=== PATIENT | female | born 1965 | race Caucasian/White ===

== ENCOUNTER 2016-06-09 11:05 | Emergency (ER) | payer BC ==
[2016-06-09 11:58] VITALS: BP 121/78
[2016-06-09] MEDS ORDERED: NS 0.9% 1000 ML* 1,000 ML IV ONE (12:14)
--- NOTE | 2016-06-09 12:33 | ED ---
Syncope/Near Syncope - HPI Summary HPI Summary: Patient presents for delayed evaluation of "dizziness" since 2015, but worsened over the last 3 weeks. Dizziness is described as her head being upside down, but denies vertiginous symptoms. Came for evaluation. No positional or exertional component to incite each episode, although sometimes worsened by extending her head. Denies any specific subjective complaints, poor po intake, medication changes, recent illnesses. No allev factors attemted. Has never discussed this with her PCP or Neurologist since the onset. Came to the ED because it was more convenient than contacting her Neurologist. 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 Onset/Duration: Gradual Onset, Lasting Weeks Timing: Intermittent Episode Lasting Associated Head Trauma: Yes Aggravating Factor(s): Nothing Alleviating Factor(s): Nothing, Spontaneous Resolution Associated Signs And Symptoms: Head Trauma (Remote), Lightheadedness - Allergies/Home Medications Allergies/Adverse Reactions: Allergies Allergy/AdvReac Type Severity Reaction Status Date / Time Cortisone Allergy Hives Verified 03/12/16 09:36 Home Medications: Home Medications Penicillin VK TAB 500 MG(NF) [Penicillin VK 500 mg Tab(NF)] 500 mg PO BID [History Confirmed 06/09/16] Probiotic Product [Probiotic Daily] 2 cap PO DAILY 06/09/16 [History Confirmed 06/09/16] PMH/Surg Hx/FS Hx/Imm Hx Previously Healthy: Yes Endocrine/Hematology History: Denies: Hx Diabetes Cardiovascular History: Denies: Hx Hypertension, Hx Pacemaker/ICD History: Denies: Hx Renal Disease Musculoskeletal History: Reports: Hx Back Problems Sensory History: Reports: Hx Cataracts Denies: Hx Hearing Aid Opthamlomology History: Reports: Hx Cataracts Psychiatric History: Denies: Hx Panic Disorder - Surgical History Surgery Procedure, Year, and Place: C SECTION. TUBAL LIGATION. DEQUERVEIN -Rt WRIST. CSP - FUSION -12/05/14. BREAST REDUCTION /ABD PLASTY -07/2015. CATARACT AND LASER Infectious Disease History: No Infectious Disease History: Reports: History Other Infectious Disease - Herpes Denies: Traveled Outside the [place] in Last 30 Days - Social History Alcohol Use: Occasionally Substance Use Type: Reports: None Smoking Status (MU): Current Every Day Smoker Type: Cigarettes Amount Used/How Often: 1/2 PPD Have You Smoked in the Last Year: Yes Review of Systems Negative: Blurred Vision, Diplopia Cardiovascular: Negative Negative: Palpitations, Chest Pain Respiratory: Negative Musculoskeletal: Negative Skin: Negative Negative: Headache, Weakness, Paresthesia, Numbness, Syncope, Slurred Speech Positive: Anxious All Other Systems Reviewed And Are Negative: Yes Physical Exam Triage Information Reviewed: Yes Vital Signs On Initial Exam: Initial Vitals Temp Pulse Resp BP Pulse Ox 99.2 F 88 18 125/80 100 06/09/16 11:30 06/09/16 11:30 06/09/16 11:30 06/09/16 11:30 06/09/16 11:30 Vital Signs Reviewed: Yes Appearance: Positive: Well-Appearing, No Pain Distress, Well-Nourished Skin: Positive: Warm, Skin Color Reflects Adequate Perfusion, Dry Head/Face: Positive: Normal Head/Face Inspection. Negative: Temporal Artery Tenderness, Cephalohematoma Eyes: Positive: Normal, EOMI, MARLON, Conjunctiva Clear ENT: Positive: Normal ENT inspection, Hearing grossly normal, Pharynx normal, Other - Bilateral serous effusion in the ears. Neck: Positive: Supple, Nontender, No Lymphadenopathy, Other: - No carotid bruits or thrills. Respiratory/Lung Sounds: Positive: Clear to Auscultation, Breath Sounds Present Cardiovascular: Positive: Normal, RRR, Pulses are Symmetrical in both Upper and Lower Extremities Abdomen Description: Positive: Nontender, No Organomegaly, Soft Musculoskeletal: Positive: Normal, Strength/ROM Intact Neurological: Positive: Normal, Sensory/Motor Intact, Alert, Oriented to Person Place, Time, CN Intact II-III, Reflexes Intact, NV Bundle Intact Distally, Normal Gait, Heel to Toe, Finger to Nose, Facial Symmetry, Speech Normal. Negative: Babinski Bilateral, Cerebellar Dysfunction, Disoriented, EOM Palsy, Facial Droop, Focal Deficit @, Slurred Speech, Dysphagia, Rhomberg, Ataxic Gait , Dysarthric Aphasia, Pronator Drift Present Psychiatric: Positive: Anxious Diagnostics - Vital Signs Vital Signs Temp Pulse Resp BP Pulse Ox 06/09/16 11:34 92 17 97 06/09/16 11:33 121/78 06/09/16 11:30 99.2 F 88 18 125/80 100 - Laboratory Result Diagrams: 06/09/16 12:35 06/09/16 12:35 Lab Statement: Any lab studies that have been ordered have been reviewed, and results considered in the medical decision making process. - EKG No standard instances Cardiac Rate: NL EKG Rhythm: Sinus Rhythm ST Segment: Normal Ectopy: None - HR 91 Course/Dx - Diagnoses Differential Diagnosis/HQI/PQRI: Positive: Cerebral Vascular Accident, Coronary Artery Disease, Dysrhythmia, Pulmonary Embolism, Transient Ischemic Attack, Other - Uncertain if this is posterior cerebellar insufficiency, VTE. Odd presentation, but non focal neurologic exam. Provider Diagnoses: Near syncope - Physician Notifications Discussed Care Of Patient With: Dr. Tafoya ( Neurosurgery) recommends PCP FU. Discharge - Discharge Plan Condition: Stable Disposition: HOME Patient Education Materials: Near Syncope (ED) Referrals: Manfred Elmore MD [Primary Care Provider] -
[2016-06-09 12:49] LABS: Hematocrit 43 % (35-47); Hemoglobin 14.4 g/dl (12.0-16.0); Mean Corpuscular HGB Conc 34 g/dl (31-36); Mean Corpuscular Hemoglobin 34 pg (27-31); Mean Corpuscular Volume 101 fL (80-97); Mean Platelet Volume 8 um3 (7.4-10.4); Red Blood Count 4.21 10^6/ul (4.0-5.4); Red Cell Distribution Width 13 % (10.5-15); White Blood Count 6.7 10^3/ul (3.5-10.8)
[2016-06-09 12:53] LABS: Urine Bilirubin Negative (Negative); Urine Glucose Negative (Negative); Urine Nitrite Negative (Negative)
[2016-06-09 13:08] LABS: BUN/Creatinine Ratio 16.9 (8-20); Calcium 9.9 mg/dL (8.6-10.3); EGFR African American 111.6 (>60); EGFR Non-African American 86.8 (>60); Potassium 3.8 mmol/L (3.5-5.0)
[2016-06-09] MEDS ORDERED: Iohexol 350* (CONTRAST) 500 ML MDV IV ONE (13:17)
--- NOTE | 2016-06-09 13:58 | RAD ---
INDICATION: Dizziness. COMPARISON: CT angiogram head and neck of the same date. CT brain October 27, 2010. Technique: Noncontrast CT vertex of skull through foramen magnum. REPORT: The sulci, ventricles, and basal cisterns are normal for age. Lim matter white matter differentiation is preserved without evidence for edema. No intra or extra axial hemorrhage, mass, or fluid collection detected. Unremarkable orbital contents. Unremarkable calvarium and skull base. Unremarkable scalp. The visualized paranasal sinuses and mastoid air spaces are clear. IMPRESSION: Negative unenhanced head CT.
--- NOTE | 2016-06-09 14:08 | RAD ---
INDICATION: Dizziness. COMPARISON: Noncontrast head CT of the same date. TECHNIQUE: Multidetector CT images were obtained from the aortic arch to the vertex of the head with 80 mL Omnipaque 350 IV contrast. Arterial phase of enhancement. Multiplanar reformation including maximum intensity projection. 3-D arterial volume rendering. Stenosis estimations based on denominator of distal arterial diameter. NECK ANGIOGRAM REPORT: Beam hardening artifact from contrast within the LEFT brachiocephalic vein limits assessment of the aortic arch branch vessels. Normal configuration of the branch vessels at the aortic arch without gross abnormality. Normally opacified bilateral common and internal carotid arteries without appreciable atherosclerotic plaque, stenosis, or dissection. Unremarkable bilateral subclavian arteries. Mildly LEFT dominant patent bilateral vertebral arteries without pathologic finding. NECK ANGIOGRAM IMPRESSION: Negative for carotid or vertebral artery stenosis or occlusion. HEAD ANGIOGRAM REPORT: Unremarkable intracranial internal carotid arteries as well as the M1 and M2 segments of the middle cerebral arteries and A1 and A2 segments of the anterior cerebral arteries. Small patent anterior communicating artery visualized. Unremarkable cerebellar artery origins and basilar artery. Patent bilateral posterior cerebral arteries are primarily supplied by the posterior circulation. Normal variant hypoplastic posterior communicating arteries. No intracranial aneurysm or vascular malformation evident. No abnormal arterial enhancement evident. Normal opacification of the dural venous sinuses. Normal variant relative hypoplastic LEFT transverse and sigmoid sinus. HEAD ANGIOGRAM IMPRESSION: Negative CT angiogram of the central intracranial arterial vasculature. No pathologic process evident. CPT II: CPT II Codes: 3100F
== END 2016-06-09 15:50 | disposition home or self-care (01) ==
LOC: ED 11:05
DX: R55 Syncope and collapse (principal); S09.90XA Unspecified injury of head, initial encounter; R42 Dizziness and giddiness; F41.9 Anxiety disorder, unspecified; F17.210 Nicotine dependence, cigarettes, uncomplicated
CPT/HCPCS: 36415; 70450; 70496; 70498; 80048; 81003; 85027; 85379; 93005; 99282; Q9967

== ENCOUNTER 2019-07-12 11:57 | Emergency (ER) | payer BC ==
--- NOTE | 2019-07-12 14:47 | ED ---
Shortness of Breath - HPI Summary HPI Summary: 53 year old female presents with shortness breath for the past week. She states that it hurts when she takes deep breath. She states that it is a sharp pain across her chest. She feels like she can't take a deep breath. She admits occasional cough which has been dry. No fevers. She did try her daughters inhaler without any relief. She is a smoker. No family history of blood clots. No recent travel. not on hormone therapy No exposure to anyone who is sick. No exposure to covid patients. never had this before. no abdominal pain. no nausea or vomiting. - History of Current Complaint Chief Complaint: EDShortnessOfBreath Time Seen by Provider: 07/12/19 14:34 - Allergy/Home Medications Allergies/Adverse Reactions: Allergies Allergy/AdvReac Type Severity Reaction Status Date / Time cortisone Allergy Hives Verified 07/12/19 12:28 Home Medications: Home Medications Acyclovir* [Zovirax CAP*] 800 mg PO TID 10/21/14 [History Confirmed 07/12/19] L. Acidophilus/Bifid. Animalis [Probiotic Daily] 2 cap PO DAILY 06/09/16 [ History Confirmed 07/12/19] Cyanocobalamin (Vitamin B-12) [B-12] 500 mcg PO DAILY 07/12/19 [History Confirmed 07/12/19] PMH/Surg Hx/FS Hx/Imm Hx Endocrine/Hematology History: Denies: Hx Diabetes Cardiovascular History: Denies: Hx Hypertension, Hx Pacemaker/ICD History: Denies: Hx Renal Disease Musculoskeletal History: Reports: Hx Back Problems Sensory History: Reports: Hx Cataracts Denies: Hx Hearing Aid Opthamlomology History: Reports: Hx Cataracts Psychiatric History: Denies: Hx Panic Disorder - Surgical History Surgery Procedure, Year, and Place: C SECTION. TUBAL LIGATION. DEQUERVEIN -Rt WRIST. CSP - FUSION -12/05/14. BREAST REDUCTION /ABD PLASTY -07/2015. CATARACT AND LASER. EXCISIONAL BIOPSY LEFT BREAST 2001 - Immunization History Date of Tetanus Vaccine: unknown Date of Influenza Vaccine: none Infectious Disease History: No Infectious Disease History: Reports: History Other Infectious Disease - Herpes Denies: Traveled Outside the [place] in Last 30 Days - Family History Known Family History: Positive: Respiratory Disease - asthma daughter - Social History Alcohol Use: Occasionally Substance Use Type: Reports: None Smoking Status (MU): Current Every Day Smoker Type: Cigarettes Amount Used/How Often: 1/2 PPD Have You Smoked in the Last Year: Yes Review of Systems Negative: Fever Positive: Chest Pain Positive: Shortness Of Breath, Cough All Other Systems Reviewed And Are Negative: Yes Physical Exam Triage Information Reviewed: Yes Vital Signs On Initial Exam: Initial Vitals Temp Pulse Resp BP Pulse Ox 98.4 F 95 18 116/90 99 07/12/19 12:00 07/12/19 12:00 07/12/19 12:00 07/12/19 12:00 07/12/19 12:00 Vital Signs Reviewed: Yes Appearance: Positive: Well-Appearing Skin: Positive: Warm, Dry Head/Face: Positive: Normal Head/Face Inspection Eyes: Positive: Normal, EOMI, MARLON, Conjunctiva Clear ENT: Positive: Normal ENT inspection, Pharynx normal, TMs normal Respiratory/Lung Sounds: Positive: Clear to Auscultation, Breath Sounds Present Cardiovascular: Positive: Normal, RRR Abdomen Description: Positive: Nontender, Soft Bowel Sounds: Positive: Present Musculoskeletal: Positive: Normal Neurological: Positive: Normal Psychiatric: Positive: Normal Procedures - Sedation Patient Received Moderate/Deep Sedation with Procedure: No Diagnostics - Vital Signs Vital Signs Temp Pulse Resp BP Pulse Ox 07/12/19 13:00 98.2 F 89 16 120/87 99 07/12/19 12:00 98.4 F 95 18 116/90 99 - Laboratory Result Diagrams: 07/12/19 14:58 07/12/19 14:58 Lab Statement: Any lab studies that have been ordered have been reviewed, and results considered in the medical decision making process. - Radiology chest Radiology Interpretation Completed By: Radiologist Summary of Radiographic Findings: IMPRESSION: NO ACTIVE CARDIOPULMONARY DISEASE. - EKG No standard instances Cardiac Rate: NL EKG Rhythm: Sinus Rhythm Summary of EKG Findings: sinus rhythm Course/Dx - Course Course Of Treatment: 53 year old female presents with shortness breath for the past week. She states that it hurts when she takes deep breath. She states that it is a sharp pain across her chest. She feels like she can't take a deep breath. She admits occasional cough which has been dry. No fevers. She did try her daughters inhaler without any relief. She is a smoker. No family history of blood clots. No recent travel. not on hormone therapy No exposure to anyone who is sick. No exposure to covid patients. never had this before. no abdominal pain. no nausea or vomiting. on exam lungs CTA. ekg sinus rhythm. chest xray normal. d-dimer neg. wbc normal. troponin neg. not finding a reason for symptoms here. told follow up with primary. patient understand and agrees with plan. - Diagnoses Differential Diagnosis/HQI/PQRI: Positive: Bronchitis, Pneumonia, Pulmonary Embolism Provider Diagnoses: Shortness of breath Discharge ED - Sign-Out/Discharge Documenting (check all that apply): Patient Departure - Discharge Plan Condition: Good Disposition: HOME Patient Education Materials: Shortness of Breath (ED) Referrals: Manfred Elmore MD [Primary Care Provider] - Additional Instructions: follow up with primary within 5 days Return to ED if develop any new or worsening symptoms - Billing Disposition and Condition Condition: GOOD Disposition: Home - Attestation Statements Provider Attestation: I was available for consultation for this patient. I did not evaluate the patient or participate in any medical decision making or disposition decisions unless I am specifically named in the chart as having consulted on the patient. If I have consulted on the patient, please see my own ED note on the patient encounter. Bakari Nunez MD
[2019-07-12 15:15] LABS: ABS Basophils 0.1 10^3/ul (0-0.2); ABS Monocytes 0.4 10^3/ul (0-0.8); ABS Neutrophils 4.5 10^3/ul (1.5-7.7); Eosinophil % 0.4 %; Hematocrit 42 % (35-47); Hemoglobin 14.4 g/dL (12.0-16.0); Lymphocyte % 28.9 %; Mean Corpuscular HGB Conc 34 g/dL (31-36); Mean Corpuscular Hemoglobin 34 pg (27-31); Mean Corpuscular Volume 99 fL (80-97); Mean Platelet Volume 8.2 fL (7.4-10.4); Nucleated Red Blood Cells % 0.1; Platelet Count 329 10^3/uL (150-450); Red Blood Count 4.21 10^6 /uL (3.70-4.87); Red Cell Distribution Width 13 % (10-15)
[2019-07-12 15:28] LABS: ALT 16 U/L (7-52); AST 17 U/L (13-39); Albumin 4.4 g/dL (3.2-5.2); Albumin/Globulin Ratio 1.5 (1-3); Alkaline Phosphatase 70 U/L (34-104); Anion Gap 9 mmol/L (2-11); BUN/Creatinine Ratio 13.8 (8-20); Blood Urea Nitrogen 11 mg/dL (6-24); C Reactive Protein < 1.00 mg/L (<8.01); CO2 Carbon Dioxide 25 mmol/L (22-32); Calcium 9.9 mg/dL (8.6-10.3); Chloride 104 mmol/L (101-111); EGFR African American 90.4 (>60); EGFR Non-African American 74.7 (>60); Glucose 95 mg/dL (70-100); Potassium 3.9 mmol/L (3.5-5.0); Sodium 138 mmol/L (135-145); Total Protein 7.4 g/dL (6.4-8.9)
[2019-07-12 16:33] VITALS: BP 0/0
== END 2019-07-12 16:31 | disposition home or self-care (01) ==
LOC: ED 11:57
DX: R06.02 Shortness of breath (principal); F17.210 Nicotine dependence, cigarettes, uncomplicated; Z98.51 Tubal ligation status; Z88.8 Allergy status to other drugs, medicaments and biological substances
CPT/HCPCS: 36415; 71046; 80053; 83605; 83880; 84484; 85025; 85379; 86140; 93005; 99282